=== PATIENT | female | born 2000 | race Caucasian/White ===

== ENCOUNTER → 2020-12-09 16:42 | Outpatient (CLI) | payer OTHER, SELFPAY ==
[2020-12-13 16:54] LABS: HPV Reflexed? NOT INDICATED
== END ==
PROVIDERS: PCP Nurse Practitioner Family; Visit Provider Obstetrics & Gynecology
DX: Z12.4 Encounter for screening for malignant neoplasm of cervix (principal)
CPT/HCPCS: 88175; G0145

== ENCOUNTER → 2022-02-17 | Outpatient (CLI) | payer OTHER, SELFPAY ==
[2022-02-25 12:26] LABS: HPV APTIMA, High Risk Positive (Negative)
[2022-05-11 18:52] LABS: HPV Reflexed? YES, CHARGE PATIENT
== END | disposition home or self-care (01) ==
LOC: LABSPEC 14:58
PROVIDERS: PCP Nurse Practitioner Family; Referring Provider Obstetrics & Gynecology; Visit Provider Obstetrics & Gynecology
DX: Z12.4 Encounter for screening for malignant neoplasm of cervix (principal)
CPT/HCPCS: 87624; 88175; G0145

== ENCOUNTER → 2022-02-20 | Outpatient (CLI) | payer OTHER, SELFPAY ==
--- NOTE | 2022-02-20 10:51 | US_ITS ---
STUDY: ULTRASOUND BREAST - RIGHT REASON FOR EXAM: Female, 21 years old. Right breast mass. TECHNIQUE: Axial and longitudinal images of the RIGHT breast were performed with a high resolution ultrasound transducer. # OF IMAGES: 16 COMPARISON: None. FINDINGS: RIGHT Breast: The inner lower quadrant of the right breast was examined by ultrasound. No sonographic abnormality is seen. Clinical correlation suggested. US/Breast Limited Unilateral IMPRESSION: No sonographic abnormality is seen. Clinical correlation recommended. ASSESSMENT CATEGORY: BIRADS Category 1: Negative. A letter regarding these results will be sent to the patient by the facility within 30 days. Electronically Signed: Tam Montes MD at 8:41 EDT ,
== END | disposition home or self-care (01) ==
LOC: OPUS 10:51
PROVIDERS: PCP Nurse Practitioner Family; Visit Provider Obstetrics & Gynecology
DX: N63.10 Unspecified lump in the right breast, unspecified quadrant (principal)
CPT/HCPCS: 76642

== ENCOUNTER → 2023-02-18 | Outpatient (CLI) | payer OTHER, SELFPAY ==
[2023-02-22 07:07] LABS: Chlamydia By Nucleic Acid AMP Negative (Negative); Gonococcus By Nucleic Acid AMP Negative (Negative)
[2023-02-24 22:09] LABS: HPV Reflexed? NOT INDICATED
== END | disposition home or self-care (01) ==
LOC: LABSPEC 15:34
PROVIDERS: PCP Nurse Practitioner Family; Referring Provider Obstetrics & Gynecology; Visit Provider Obstetrics & Gynecology
DX: Z20.2 Contact with and (suspected) exposure to infections with a predominantly sexual mode of transmission (principal); Z12.4 Encounter for screening for malignant neoplasm of cervix
CPT/HCPCS: 87491; 87591; 88175; G0145

== ENCOUNTER → 2024-02-11 | Outpatient (CLI) | payer OTHER, SELFPAY ==
[2024-02-11 12:56] LABS: Absolute Lymphocyte Count 2.61 X10^3/uL (0.83-4.51); Absolute Neutrophil Count 6.2 X10^3/uL (2.0-7.7); Basophil# 0.06 X10^3/uL; Basophil% 0.6 % (0-1); Eosinophil# 0.12 X10^3/uL; Eosinophils% 1.2 % (0-5); Hematocrit 36.8 % (37-47); Hemoglobin 12.7 g/dL (12.0-15.0); Lymphocyte # 2.61 X10^3/ul (0.83-4.51); Lymphocyte % 26.5 % (19-41); Mean Corp Hgb Conc 34.5 g/dL (32-36); Mean Corpuscular Hgb 32.5 pg (27.0-32.0); Mean Corpuscular Volume 94.1 fL (81-99); Mean Platelet Vol. 9.5 fl (6.2-12.0); Monocyte# 0.82 X10^3/uL; Monocyte% 8.3 % (0-10); NRBC Flagged by Analyzer 0 % (0-5); Neutrophil # 6.22 X10^3/uL (2.7-7.7); Neutrophil % 63.1 % (47-70); Platelet Count 306 K/mm3 (150-450); RBC Distribution Width CV 11.8 % (11.6-14.6); RBC Distribution Width SD 40.5 fl (35.1-43.9); Red Blood Count 3.91 M/mm3 (4.2-5.4); White Blood Count 9.9 K/mm3 (4.4-11.0)
[2024-02-11 14:11] LABS: HIV - WCH Non-Reactive (Nonreactive); Hepatitis B Surface Antigen Non-Reactive (Nonreactive); Hepatitis C Antibody Non-Reactive (Nonreactive); Rubella IgG Non-Reactive (Nonreactive); Syphilis Antibodies Non-reactive
[2024-02-14 20:07] LABS: Chlamydia By Nucleic Acid AMP Negative (Negative); Gonococcus By Nucleic Acid AMP Negative (Negative)
== END | disposition home or self-care (01) ==
PROVIDERS: PCP Nurse Practitioner Family; Referring Provider Advanced Practice Midwife; Visit Provider Advanced Practice Midwife
DX: Z34.00 Encounter for supervision of normal first pregnancy, unspecified trimester (principal)
CPT/HCPCS: 36415; 85025; 86703; 86762; 86780; 86803; 86850; 86900; 86901; 87086; 87340; 87491; 87591

== ENCOUNTER → 2024-04-10 | Outpatient (CLI) | payer OTHER, SELFPAY | END | disposition home or self-care (01) | PROVIDERS: PCP Nurse Practitioner Family; Referring Provider Obstetrics & Gynecology; Visit Provider Obstetrics & Gynecology | DX: Z36.9 Encounter for antenatal screening, unspecified (principal) | CPT/HCPCS: 36415 ==

== ENCOUNTER → 2024-04-14 | Outpatient (CLI) | payer OTHER, SELFPAY ==
--- NOTE | 2024-04-14 12:21 | US_ITS ---
HISTORY: anatomy/cervical length. LMP 11/26/2023. TECHNIQUE: Transabdominal pelvic ultrasound was performed. 124 images. COMPARISON: None. FINDINGS: INTRAUTERINE GESTATION(s): Single. PRESENTATION: Transverse left, variable position. HEART MOTION: 155 bpm. PLACENTA: Left lateral, grade 0. 2.7 cm from the internal os on transvaginal imaging, 1.6 cm from the internal os on transabdominal imaging. Small venous lakes noted. Bilobed appearance. CERVIX: 4.9 cm, long and closed. AMNIOTIC FLUID: Maximum vertical pocket 4.3 cm. biometry- BIPARIETAL DIAMETER: 4.7 cm, corresponding to 20 weeks 2 days. HEAD CIRCUMFERENCE: 17.7 cm, corresponding to 20 weeks 1 day. ABDOMINAL CIRCUMFERENCE: 15.3 cm, corresponding to 20 weeks 4 days. FEMUR LENGTH: 3.1 cm, corresponding to 19 weeks 4 days. ESTIMATED GESTATIONAL AGE: 20 weeks 1 day. ESTIMATED DUE DATE (KAYLYNN): 08/31/2024. ESTIMATED WEIGHT: 335 g corresponding to 54th percentile. ANATOMY: Facial profile, nose/lips, anterior and posterior cranial fossa, spine, bilateral upper and lower extremities, four-chamber heart with small echogenic foci in the left and right ventricles, three-vessel cord insertion, stomach, kidneys, and bladder visualized. IMPRESSION: Single living intrauterine in variable presentation with an estimated gestational age of 20 weeks 1 day. Mildly low-lying placenta. Unremarkable cervix. Small echogenic foci in the cardiac ventricles, uncertain clinical significance. Recommend follow-up. Electronically Signed: Zuly Lima MD at 14:55 EDT , HISTORY: anatomy/cervical length. LMP 11/26/2023. TECHNIQUE: Transabdominal pelvic ultrasound was performed. 124 images. COMPARISON: None. FINDINGS: INTRAUTERINE GESTATION(s): Single. PRESENTATION: Transverse left, variable position. HEART MOTION: 155 bpm. PLACENTA: Left lateral, grade 0. 2.7 cm from the internal os on transvaginal imaging, 1.6 cm from the internal os on transabdominal imaging. Small venous lakes noted. Bilobed appearance. CERVIX: 4.9 cm, long and closed. AMNIOTIC FLUID: Maximum vertical pocket 4.3 cm. biometry- BIPARIETAL DIAMETER: 4.7 cm, corresponding to 20 weeks 2 days. HEAD CIRCUMFERENCE: 17.7 cm, corresponding to 20 weeks 1 day. ABDOMINAL CIRCUMFERENCE: 15.3 cm, corresponding to 20 weeks 4 days. FEMUR LENGTH: 3.1 cm, corresponding to 19 weeks 4 days. ESTIMATED GESTATIONAL AGE: 20 weeks 1 day. ESTIMATED DUE DATE (KAYLYNN): 08/31/2024. ESTIMATED WEIGHT: 335 g corresponding to 54th percentile. ANATOMY: Facial profile, nose/lips, anterior and posterior cranial fossa, spine, bilateral upper and lower extremities, four-chamber heart with small echogenic foci in the left and right ventricles, three-vessel cord insertion, stomach, kidneys, and bladder visualized. US/OB Anatomy w/ Transvaginal IMPRESSION: Single living intrauterine in variable presentation with an estimated gestational age of 20 weeks 1 day. Mildly low-lying placenta. Unremarkable cervix. Small echogenic foci in the cardiac ventricles, uncertain clinical significance. Recommend follow-up. Electronically Signed: Zuly Lima MD at 14:56 EDT ,
== END | disposition home or self-care (01) ==
LOC: US 12:21
PROVIDERS: PCP Nurse Practitioner Family; Referring Provider Obstetrics & Gynecology; Visit Provider Obstetrics & Gynecology
DX: Z34.00 Encounter for supervision of normal first pregnancy, unspecified trimester (principal)
CPT/HCPCS: 76805; 76817

== ENCOUNTER → 2024-06-06 | Outpatient (CLI) | payer OTHER, SELFPAY ==
[2024-06-06 12:22] LABS: Absolute Lymphocyte Count 1.32 X10^3/uL (0.83-4.51); Absolute Neutrophil Count 7.2 X10^3/uL (2.0-7.7); Basophil# 0.03 X10^3/uL; Basophil% 0.3 % (0-1); Eosinophil# 0.04 X10^3/uL; Eosinophils% 0.4 % (0-5); Hemoglobin 12.1 g/dL (12.0-15.0); Lymphocyte # 1.32 X10^3/ul (0.83-4.51); Lymphocyte % 14.3 % (19-41); Mean Corp Hgb Conc 33.6 g/dL (32-36); Mean Corpuscular Hgb 32.4 pg (27.0-32.0); Mean Corpuscular Volume 96.5 fL (81-99); Mean Platelet Vol. 10.1 fl (6.2-12.0); Monocyte# 0.54 X10^3/uL; Monocyte% 5.9 % (0-10); NRBC Flagged by Analyzer 0 % (0-5); Neutrophil # 7.24 X10^3/uL (2.7-7.7); Neutrophil % 78.6 % (47-70); Platelet Count 320 K/mm3 (150-450); RBC Distribution Width CV 11.9 % (11.6-14.6); RBC Distribution Width SD 41.7 fl (35.1-43.9); Red Blood Count 3.73 M/mm3 (4.2-5.4); White Blood Count 9.2 K/mm3 (4.4-11.0)
[2024-06-06 13:15] LABS: Glucose Challenge Gest 1H 50g 189 mg/dL (70-140)
[2024-06-06 13:19] LABS: HIV - WCH Non-Reactive (Nonreactive); Syphilis Antibodies Non-reactive
== END | disposition home or self-care (01) ==
LOC: BWCLAB 11:20
PROVIDERS: PCP Nurse Practitioner Family; Referring Provider Nurse Practitioner Women's Health; Visit Provider Nurse Practitioner Women's Health
DX: Z13.1 Encounter for screening for diabetes mellitus (principal)
CPT/HCPCS: 36415; 82950; 85025; 86703; 86780

== ENCOUNTER → 2024-06-15 | Outpatient (CLI) | payer OTHER, SELFPAY ==
--- NOTE | 2024-06-15 15:22 | US_ITS ---
EXAM: US , LIMITED CLINICAL INDICATION: growth TECHNIQUE: Real-time limited ultrasound of the maternal uterus with image documentation. COMPARISON: Obstetrical ultrasound 04/14/2024. FINDINGS: FETUS: Single fetus. GESTATIONAL AGE: Clinical gestational age is 28 weeks 6 days which corresponds to the estimated gestational age by measurement. KAYLYNN: KAYLYNN is September 01, 2024. EFW: Estimated weight is 1357 g which is at the 50th percentile. BPD: BPD 7.2 cm. HC: Head circumference is 26.9 cm. AC: Abdominal circumference is 25.6 cm. FL: Femur length is 5.4 cm. POSITION: Cephalic presentation. HEART RATE: cardiac rate is 138 bpm. AMNIOTIC FLUID: Amniotic fluid index is 14.2 cm. UTERUS: Uterus located along the left lateral uterine wall. CERVIX: Cervix is not imaged. Normal interval growth. US/OB Limited With Biometrics IMPRESSION: Normal interval growth. Electronically Signed: Rom Diana MD at 14:11 EST ,
== END | disposition home or self-care (01) ==
LOC: US 15:21
PROVIDERS: PCP Nurse Practitioner Family; Referring Provider Obstetrics & Gynecology; Visit Provider Obstetrics & Gynecology
DX: O43.119 Circumvallate placenta, unspecified trimester (principal); Z3A.00 Weeks of gestation of pregnancy not specified
CPT/HCPCS: 76816

== ENCOUNTER 2024-06-20 08:00 | Outpatient (RCR) | payer OTHER, SELFPAY | END 2024-06-27 23:59 | LOC: NS 08:00 | PROVIDERS: PCP Nurse Practitioner Family; Referring Provider Nurse Practitioner Women's Health; Visit Provider Nurse Practitioner Women's Health | DX: Z71.3 Dietary counseling and surveillance (principal); O24.419 Gestational diabetes mellitus in pregnancy, unspecified control | CPT/HCPCS: 97802; 97803 ==

== ENCOUNTER → 2024-07-11 | Outpatient (CLI) | payer OTHER, SELFPAY ==
--- NOTE | 2024-07-11 16:38 | US_ITS ---
STUDY: SECOND AND THIRD TRIMESTER OBSTETRICAL ULTRASOUND - LIMITED REASON FOR EXAM: Female, 24 years old growth -- 32 weeks, check placental location LMP: November 26, 2023. PRIOR ULTRASOUND: Comparison is made with prior sonogram dated June 15, 2024. TECHNIQUE: Transabdominal TECHNICAL QUALITY: Adequate. FINDINGS: There is a single intrauterine fetus. The fetus is in a cephalic presentation. There is demonstrated cardiac activity with a heart rate of 136 bpm. There is a normal amniotic fluid volume. The largest amniotic fluid pocket measures 4.8 cm. The amniotic fluid index (JAMES) is 14.7 cm. The placenta is left lateral in location and is not low lying. There are Grade 1 placental changes. BIOMETRY: BPD: 8 cm: 32 weeks, 2 days: 32% HC: 30 cm: 32 weeks, 5 days: 17% AC: 30.37: 34 weeks, 2 days: 91% FL: 6.2 cm: 31 weeks, 6 days: 21% Age by LMP: 32 weeks, 4 days. KAYLYNN by LMP: September 01, 2024. age by current US: 32 weeks, 3 days. KAYLYNN by current US: September 02, 2024. Estimated weight: 2178 grams, +/- 327 grams, 65 percentile. US/OB Limited With Biometrics IMPRESSION: Single live intrauterine gestation with a mean gestational age of 32 weeks and 3 days. Electronically Signed: Tam Montes MD at 15:39 EST ,
== END | disposition home or self-care (01) ==
LOC: US 16:37
PROVIDERS: PCP Nurse Practitioner Family; Referring Provider Nurse Practitioner Women's Health; Visit Provider Nurse Practitioner Women's Health
DX: O24.419 Gestational diabetes mellitus in pregnancy, unspecified control (principal); Z3A.00 Weeks of gestation of pregnancy not specified
CPT/HCPCS: 76816

== ENCOUNTER → 2024-08-08 | Outpatient (CLI) | payer OTHER, SELFPAY | END | disposition home or self-care (01) | LOC: LABSPEC 14:33 | PROVIDERS: PCP Nurse Practitioner Family; Referring Provider Obstetrics & Gynecology; Visit Provider Obstetrics & Gynecology | DX: Z34.03 Encounter for supervision of normal first pregnancy, third trimester (principal) | CPT/HCPCS: 87081 ==

== ENCOUNTER → 2024-08-14 | Outpatient (CLI) | payer OTHER, SELFPAY ==
--- NOTE | 2024-08-14 17:04 | US_ITS ---
PROCEDURE: OB LIMITED WITH BIOMETRICS REASON FOR EXAM: growth. COMPARISON: Comparison is made with prior sonogram dated July 11, 2024. FINDINGS Number: 1 Position: Vertex Placental Position: Left lateral. Not low-lying. Placental Abnormalities: None. DIMENSIONS: Biparietal Diameter: 8.9 cm: 36 weeks and 0 days: 28 percentile/ Head Circumference: 32.9 cm: 37 weeks and 3 days: 27th percentile/ Abdominal Circumference: 35.3 cm: 39 weeks and 2 days: 96 percentile/ Femur Length: 7 cm: 36 weeks and 0 days: 16 percentile/ ESTIMATED WEIGHT: 3357 g plus/-504 g ESTIMATED WEIGHT PERCENTILE (24+ weeks): 71.9 ESTIMATED GESTATIONAL AGE: Baseline: 37 weeks and 3 days By Ultrasound: 37 weeks and 1 day ESTIMATED DATE OF DELIVERY: Baseline: September 01, 2024 By Ultrasound: BIOPHYSICAL ASSESSMENT: Amniotic Fluid Volume: September 03, 2024 Amniotic Fluid Index: 9.5 (8-24 cm normal range) Cardiac Motion: 153 beats per minute (average) Trunk and Limb Motion: Present. MATERNAL ANATOMY: Adnexa: Neither maternal ovary is successfully identified. US/OB Limited With Biometrics IMPRESSION: Single live intrauterine gestation with mean gestational age of 37 weeks and 1 day. Reading Location: [facility]
--- NOTE | 2024-08-14 17:14 | US_ITS ---
PROCEDURE: TRANSVAGINAL W/PREG US REASON FOR EXAM: Placenta location. COMPARISON: Comparison is made with prior study dated July 11, 2024. FINDINGS Number: 1 Position: Vertex Placental Position: Anterior and not low-lying. Placental Abnormalities: Bilobed placenta. ESTIMATED GESTATIONAL AGE: Baseline: 37 weeks and 3 days ESTIMATED DATE OF DELIVERY: Baseline: September 01, 2024 BIOPHYSICAL ASSESSMENT: Cardiac Motion: 150 beats per minute. (Average) Trunk and Limb Motion: Present. MATERNAL ANATOMY: Adnexa: Neither maternal ovary is successfully identified. Cervical Length (if measured): 4.1 cm US/Transvaginal w/Preg US IMPRESSION: Placenta is anterior and not low-lying. Reading Location: [facility]
== END | disposition home or self-care (01) ==
LOC: US 17:03
PROVIDERS: PCP Nurse Practitioner Family; Referring Provider Obstetrics & Gynecology; Visit Provider Obstetrics & Gynecology
DX: O24.410 Gestational diabetes mellitus in pregnancy, diet controlled (principal); Z3A.00 Weeks of gestation of pregnancy not specified
CPT/HCPCS: 76816; 76817

== ENCOUNTER 2024-08-28 19:17 | Inpatient (IN) | payer OTHER, SELFPAY ==
[2024-08-28 19:14] VITALS: BMI 24.3
--- NOTE | 2024-08-28 20:07 | HP.PCM.OB_ITS ---
HPI - General General Date of Admission: 08/28/24 Date of Service: 08/28/24 HPI Narrative CLYDE ROSS, is a 24 F 39.3 weeks who presents to unit for induction of labor for GDM Maternal Data Information KAYLYNN Calculator Estimated Delivery Date Method Current WG Current Estimate 09/01/24 LMP (Certain) 39w 3d Other Estimates 08/31/24 Ultrasound #1 39w 4d Final KAYLYNN: 09/01/24 Final KAYLYNN Source: US >20 weeks Gestational age: 39.3 PFSH PFSH Medical History Breast mass, right Cold sore Home Medications ?Medication ?Instructions ?Recorded ?Last Taken ?Type multivit-min no.71-iron fum 28 cap PO 02/04/24 Unknown History mg-folate no.1 1 mg-dha 300 mg capsule (PNV-[place]) valacyclovir 1 gram tablet 1,000 mg PO BID PRN 4 Unknown History (Valtrex) blood sugar diagnostic (Blood #120 ea 06/06/24 Unknown Rx Glucose Test strips) blood-glucose meter #1 ea 06/06/24 Unknown Rx lancets 30 gauge (Droplet Lancets) #200 ea 06/06/24 Un known Rx Allergy/AdvReac Type Severity Reaction Status Date / Time No Known Allergies Allergy Verified 08/21/24 08:38 Family History Father Hypertension Grandmother Breast cancer Surgical History [place] teeth extracted S/P right knee surgery Social History adopted: No household members: significant other current occupational status: employed current occupation: RN [employer] current occupational exposures/hazards: No pets and animals: No history of recent travel: No sexually active: Yes Smoking Status: Never smoker alcohol intake: current alcohol intake frequency: holidays/special occasions only details: occasionally- Not while substance use type: does not use well-balanced diet: daily or most days caffeine: No eating out: rarely or never during the past year weight has: remained stable what type of physical activity do you participate in: none adin/methodist: Quaker seatbelt use: always do you feel safe at home: Yes additional social history: BF Waqas- Construction- Unit Controller History 1 Elective abortions Hx Para 0 Spontaneous abortions Hx # Term Pregnancies Ectopic pregnancies Hx # Pregnancies Multiple births # of living children Visit Details Expected Delivery Route/Plan Labor Preferences- CB/BF classes: no-WP nurse labor support person: Waqas labor intervention preferences: [] pain management options preferred: epidural cut cord/dad catch: yes : yes PP control planned: discussed discussed possible routes of delivery and associated risks: [] special requests: [] Plans Covid status: [] Flu vaccine: given Tdap vaccine: [] Rhogam: [NA LARC form signed: yes movement and labor precautions reviewed. Problem list reviewed and updated with the most current plan of care details and appropriate orders placed. Relevant counseling for the gestational age provided. Continue routine care and follow up unless otherwise noted in visit n otes/problem list details OB Flowsheet Initial Weight: 126 lb Date -?-?-?-?-?-?-?-?-?-?-?-?- EGA Weight BP Urine Prot -?-?-?-?-?-?-?-?-?-?-?-?- Glucose FHR FuHt Pres Dilation -?-?-?-?-?-?-?-?-?-?-?-?- Effaced St Visit Note 02/11/24 -?-?-?-?-?-?-?-?-?-?-?-?- 11w 0d 126 lb 6 oz (+6 oz) 127/87 -?-?-?-?-?-?-?-?-?-?-?-?- 178 -?-?-?-?-?-?-?-?-?-?-?-?- KW-CRL 48mm cons with dates. Accepts NIPT. doing well 03/14/24 -?-?-?-?-?-?-?-?-?-?-?-?- 15w 4d 127 lb (+16 oz) 127/79 Negative -?-?-?-?-?-?-?-?-?-?-?-?- Negative 150 -?-?-?-?-?-?-?-?-?-?-?-?- JV- no cramping or spotting. no complaints. low risk NIPT, it's a boy! 04/10/24 -?-?-?-?-?-?-?-?-?-?-?-?- 19w 3d 129 lb (+3 lb) 122/74 Negative -?-?-?-?--?-?-?-?-?-?-?-?- Negative 155 -?-?-?-?-?-?-?-?-?-?-?-?- SM- no vb crampi ng 05/11/24 -?-?-?-?-?-?-?-?-?-?-?-?- 23w 6d 132 lb 6 oz (+6 lb 6 oz) 112/68 Negative -?-?-?-?-?-?-?-?-?-?-?-?- Negative 156 -?-?-?-?-?-?-?-?-?-?-?-?- MH-No VB, LOF. G ood Fm. Reviewed US. Will proceed with 28 wk growth US. 06/06/24 -?-?-?-?-?-?-?-?-?-?-?-?- 27w 4d 136 lb 4 oz (+10 lb 4 oz) 119/77 Negative -?-?-?-?-?-?-?-?-?-?-?-?- Negative 145 28 -?-?-?-?-?-?-?-?-?-?-?-?- Sm- no vb lof go od fm no regular ctx co leg crmaps 06/20/24 -?-?-?-?-?-?-?-?-?-?-?-?- 29w 4d 136 lb 8 oz (+10 lb 8 oz) 109/71 Negative -?-?-?-?-?-?-?-?-?-?-?-?- Negative 145 30 -?-?-?-?-?-?-?-?-?-?-?-?- SM- no vb lof go od fm no regular ctx SM- no vb lof good fm no reg ular ctx BS reviewed 07/06/24 -?-?-?-?-?-?-?-?-?-?-?-?- 31w 6d 140 lb 4 oz (+14 lb 4 oz) 114/68 Negative -?-?-?-?-?-?-?-?-?-?-?-?- Negative 145 32 -?-?-?-?-?-?-?-?-?-?-?-?- MH- No VB, LOF. Good FM. Glucose reading nl. 07/20/24 -?-?-?-?-?-?-?-?-?-?-?-?- 33w 6d 140 lb 4 oz (+14 lb 4 oz) 127/74 Negative -?-?-?-?-?-?-?-?-?-?-?-?- Negative 154 35 -?-?-?-?-?--?-?-?-?-?-?-?- JV- glucose log normal. no longer low lying placenta. no complaints today. 08/02/24 -?-?-?-?-?-?-?-?-?-?-?-?- 35w 5d 143 lb 2 oz (+17 lb 2 oz) 114/78 Negative -?-?-?-?-?-?-?-?-?-?-?-?- Negative 140 36 -?-?-?-?-?-?-?-?-?-?-?-?- SM- no vb lof go od fm no regular ctx 08/08/24 -?-?-?-?-?-?-?-?-?-?-?-?- 36w 4d 143 lb 4 oz (+17 lb 4 oz) 125/77 Negative -?-?-?-?-?-?-?-?-?-?-?-?- Negative 140 36 Cephalic 1 -?-?-?-?-?-?-?-?-?-?-?-?- 50 -3 Sm- no vb lof good fm no regular ctx discussed 08/18/24 -?-?-?-?-?-?-?-?-?-?-?-?- 38w 0d 144 lb (+18 lb) 118/79 Negative -?-?-?-?-?-?-?-?-?-?-?-?- Negative 135 38 Cephalic 1 -?-?-?-?-?-?-?-?-?-?-?-?- 60 -2 KW- no vb/ lof/ctx. good fm. doing well. discussed IOL 08/21/24 -?-?-?-?-?-?-?-?-?-?-?-?- 38w 3d 147 lb 2 oz (+21 lb 2 oz) 123/82 Negative -?-?-?-?-?-?-?-?-?-?-?-?- Negative 145 39 Cephalic 1 -?-?-?-?-?-?-?-?-?-?-?-?- 60 -2 JV- no lof , vaginal bleeding, or dec fm. no complaints. nst reactive. IOL 08/28/24 at 7 pm NST FHR Rate Baby A Baseline: 135 Variability:: Moderate Accelerations:: 15 x 15 Decelerations:: None NST Reactive:: Yes FHR Category:: Category I Uterine Activity:: irregular ROS Constitutional Constitutional: Denies change in weight, fatigue, fever(s), headache(s), poor appetite or weakness Eyes Eyes: Denies blurry vision, change in vision, floaters, seeing flashes or spots in vision ENT HEENT: Denies dizziness, headache(s), loss taste/smell or sore throat Cardiovascular Cardiovascular: Denies chest pain, dizziness, dyspnea, irregular heart rhythm, lightheadedness, palpitations or rapid heart rate Respiratory/Chest Respiratory/Chest: Denies change in mental status, chest tightness, cough, dyspnea or breast pain Gastrointestinal Gastrointestinal: Denies anorexia, chewing difficulty, constipation, diarrhea or weight changes Genitourinary Genitourinary: Denies difficulty urinating, dysuria, flank pain, genital pain, urinary frequency or urinary urgency Musculoskeletal Musculoskeletal: Denies back pain, difficulty walking, extremity pain, joint pain, muscle cramps or muscle weakness Integumentary Integumentary: Denies lesions or unusual bruising Neurologic Neurologic: Denies abnormal movements, abnormal speech, dizziness, numbness, seizure-like activity, syncope or weakness Psychiatric Psychiatric: Denies behavioral changes, change in appetite, confusion, depression, homicidal ideation, suicidal ideation or suicidal thoughts Endocrine Endocrinology: Denies excessive sweating, polydipsia or polyuria Hematologic/Lymphatic Hematologic/Lymphatic: Denies anemia Allergic/Immunologic Allergic/Immunologic: Denies itchy eyes, lip swelling, throat swelling, tongue swelling or wheezing Vital Signs Vital Signs Vital Signs: Weight Weight: 146 lb Body Mass Index (BMI) 24.3 Physical Exam Const alert, oriented x3 and no apparent distress General Appearance: cooperative Orientation / Consciousness: awake HEENT normocephalic Neck full ROM Lymph Lymphatic: no lymphadenopathy noted Chest inspection of chest normal Resp normal respiratory effort and normal air movement Effort and Inspection: able to speak in complete sentences and symmetric chest movement GI soft to palpation and non-tender Inspection: gravid Palpation: soft; Negative for tender external exam normal Manual OB Exam: dilated 3, effaced 70 and station -2 Back/Spine normal to inspection Extremity normal to inspection and full ROM Skin no rashes or lesions noted Psych mental status grossly normal Appearance: grossly normal Speech: normal speech Labs Labs Labs: Blood Type A POSITIVE Antibody Screen NEGATIVE Hct 36.0 % (37-47) L Hgb 12.1 g/dL (12.0-15.0) Obstetrics Ultrasound Syphilis Total Ab Non-reactive Rubella IgG Antibody Non-Reactive (Nonreactive) Hep Bs Antigen Non-Reactive (Nonreactive) Hepatitis C Antibody Non-Reactive (Nonreactive) Chlamydia DNA (DESTINY) Negative (Negative) N.gonorrhoeae DNA (DESTINY) Negative (Negative) HIV 1&2 Antibody Non-Reactive (Nonreactive) Glucose 1 Hr 50 gm 189 mg/dL (70-140) H Miscellaneous Test Assessment & Plan (1) Encounter for induction of labor: PLAN: Patient presents IOL, plan management for with pitocin/AROM. Pain management: plans epidural. GBS negative. Management of any complications: see problem list I have reviewed the [facility] and made any clinically relevant updates. Dr Matos aware of assessment, plan and admission. agrees with above (2) Gestational diabetes: QUALIFIERS: Gestational diabetes mellitus control: diet-controlled Trimester: third trimester Qualified Code(s): O24.410 - Gestational diabetes mellitus in , diet controlled COMMENT: diet controlled. growth US at 36. deliver by 39-40 (3) Bilobed placenta: COMMENT: 2.5cm from os. Venous dunbar. Growth 28 wk (4) Rubella non-immune status, antepartum: COMMENT: offer MMR PP (5) Supervision of normal first : QUALIFIERS: Trimester: third trimester Qualified Code(s): Z34.03 - Encounter for supervision of normal first , third trimester COMMENT: PRR, , KAYLYNN 09/01/24, boy BF Waqas. desires jv for delivery if possible- iol august 28 pm (6) : QUALIFIERS: Weeks of gestation: 38 weeks Qualified Code(s): Z3A.38 - 38 weeks gestation of COMMENT: GBS neg,NIPT low risk. carrier declined. afp negative, nl anatomy (7) ASCUS with positive high risk HPV: COMMENT: repeat pap in 2022-02/18/23 negative pap (8) Low grade squamous intraepith lesion on cytologic smear cervix (lgsil): COMMENT: Repeat pap 2021 Charges/Coding Multi Select Codes Urinary/Genital Urinary/Genital CPT Codes: No Charge
[2024-08-28] MEDS: Lactated Ringers 1,000 ML 50 ML IV (20:40)
[2024-08-28] MEDS: Oxytocin 15 Units/NS 250ml 15 UNITS/250 ML IV.SOLN 2 UNITS IV (21:02)
[2024-08-28 21:13] LABS: Absolute Lymphocyte Count 2.08 X10^3/uL (0.83-4.51); Absolute Neutrophil Count 5.6 X10^3/uL (2.0-7.7); Basophil# 0.02 X10^3/uL; Basophil% 0.2 % (0-1); Eosinophil# 0.03 X10^3/uL; Eosinophils% 0.3 % (0-5); Hematocrit 34.7 % (37-47); Hemoglobin 11.3 g/dL (12.0-15.0); Lymphocyte # 2.08 X10^3/ul (0.83-4.51); Lymphocyte % 23.8 % (19-41); Mean Corp Hgb Conc 32.6 g/dL (32-36); Mean Corpuscular Hgb 28.6 pg (27.0-32.0); Mean Corpuscular Volume 87.8 fL (81-99); Mean Platelet Vol. 11.8 fl (6.2-12.0); Monocyte# 0.97 X10^3/uL; Monocyte% 11.1 % (0-10); NRBC Flagged by Analyzer 0 % (0-5); Neutrophil # 5.58 X10^3/uL (2.7-7.7); Platelet Count 250 K/mm3 (150-450); RBC Distribution Width CV 14.5 % (11.6-14.6); RBC Distribution Width SD 45.5 fl (35.1-43.9); Red Blood Count 3.95 M/mm3 (4.2-5.4); White Blood Count 8.7 K/mm3 (4.4-11.0)
[2024-08-28 21:50] LABS: Bedside Glucose 82 mg/dL (74-106)
[2024-08-28 22:16] VITALS: BP 140/93; PULSE 62; O2SAT 98
[2024-08-28 22:17] VITALS: RESP 14; TEMP 36.9
[2024-08-28 22:21] LABS: Syphilis Antibodies Nonreactive (Nonreactive)
[2024-08-28 23:29] VITALS: BP 128/92; PULSE 58; RESP 14; TEMP 36.5
[2024-08-28 23:30] VITALS: PULSE 61; O2SAT 99
[2024-08-28 23:54] LABS: Bedside Glucose 81 mg/dL (74-106)
[2024-08-29] VITALS (46 sets, daily range): BP systolic 92–144; BP diastolic 54–90; PULSE 70–111; RESP 14–18; TEMP 36.3–37.8; O2SAT 97–100
[2024-08-29] MEDS: Ondansetron 4 MG/2 ML Vial IV ×2 (02:08→08:29)
[2024-08-29] MEDS: Lactated Ringers 1,000 ML 999 ML IV (02:40)
[2024-08-29 03:04] LABS: Bedside Glucose 80 mg/dL (74-106)
[2024-08-29] MEDS: fentaNYL-bupivacaine (epidural) 100 ML BAG EPIDURAL (03:30)
[2024-08-29 06:38] LABS: Bedside Glucose 73 mg/dL (74-106)
[2024-08-29] MEDS: Amnioinfusion- 0.9% NS 1,000 ML IV.SOLN. 1000 ML INTRA-UTER (07:01)
[2024-08-29] MEDS: DiphenhydrAMINE 50 MG/ML Syringe IV (07:01)
[2024-08-29] MEDS: Methylergonovine 0.2 MG/ML Ampul IM (08:03)
[2024-08-29] MEDS: Oxytocin 15 Units/NS 250ml 15 UNITS/250 ML IV.SOLN 83 UNITS IV (08:16)
--- NOTE | 2024-08-29 08:17 | EX.PCM.OBVAG ---
Assessment & Plan (1) Gestational diabetes: QUALIFIERS: Gestational diabetes mellitus control: diet-controlled Trimester: third trimester Qualified Code(s): O24.410 - Gestational diabetes mellitus in , diet controlled COMMENT: diet controlled. growth US at 36. deliver by 39-40 (2) Encounter for induction of labor: (3) Bilobed placenta: COMMENT: 2.5cm from os. Venous dunbar. Growth 28 wk (4) Rubella non-immune status, antepartum: COMMENT: offer MMR PP (5) Supervision of normal first : QUALIFIERS: Trimester: third trimester Qualified Code(s): Z34.03 - Encounter for supervision of normal first , third trimester COMMENT: PRR, , KAYLYNN 09/01/24, boy BF Waqas. desires jv for delivery if possible- iol august 28 pm (6) : QUALIFIERS: Weeks of gestation: 38 weeks Qualified Code(s): Z3A.38 - 38 weeks gestation of COMMENT: GBS neg,NIPT low risk. carrier declined. afp negative, nl anatomy Maternal Data Information KAYLYNN Calculator Estimated Delivery Date Method Current WG Current Estimate 09/01/24 LMP (Certain) 39w 4d Other Estimates 08/31/24 Ultrasound #1 39w 5d Final KAYLYNN: 09/01/24 Final KAYLYNN Source: LMP Vaginal Delivery Maternal Presentation Maternal Presentation: Medically Indicated Induction Type of Induction: Pitocin and Amniotomy Medical Reason for Induction: Other (Gestational diabetes ) Vaginal Delivery Information Procedure Performed: Spontaneous Vaginal Delivery Surgeon/Practitioner: Lexus Gutierrez Date of Procedure: 08/29/24 Pre-Procedure Diagnosis: 24 y/o @ 39 weeks, gestational diabetes Post-Procedure Diagnosis: 24 y/o @ 39 weeks, gestational diabetes Type of anesthesia: Epidural Estimated Blood Loss: 300cc Time of Delivery: 07:53 Findings Description of procedure: Patient began pushing and delivered the head in the NEIL presentation. The head was delivered atraumatically and a loose nuchal cord ?1 was identified and easily reduced over the 's head. The anterior and posterior shoulders delivered without complication followed by the rest of the infant and the was placed on the maternal abdomen. Delayed cord clamping was employed for approximately 60 seconds. Cord was clamped and cut and gentle traction was applied to the cord and the placenta delivered spontaneously immediately following it was noted to be intact with three-vessel cord. The perineum and vagina were inspected and noted to have a 1st degree perineal laceration repaired with a 2-0 vicryl and a left labial laceration repaired with a 3-0 vicryl. EBL was 300. Patient and tolerated delivery well. 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
--- NOTE | 2024-08-29 08:21 | PCM.DC ---
Discharge Instructions Diet Discharge Diet: No restrictions DC O2, CPAP, BIPAP needs Home O2 Discharge instructions: No Dressing / Incision Discharge Activity: Return to Normal Activity, May Not Drive (while taking narcotic pain medications.) and May Shower May resume sexual activity in: 4-6 weeks Dressing / Incision Call your doctor if your incision/area has: Continuous Slow Oozing, Sudden Increased Bleeding, Increased Pain/ Swelling, Increased Redness and Foul Smelling Discharge Follow Up Care Please Follow Up With: Lexus Gutierrez, When: Call [phone] to make an appointment with your doctor in 6 weeks. If you had elevated blood pressure or 4th degree laceration, you will need to be seen in 2 weeks. Test Results: Test results from this visit will be discussed in further detail at your follow-up appointment, if applicable. Discharge Plan Admission Admit Date/Time: 08/28/24 19:17 Attending Provider: Lexus Gutierrez Primary Care Provider: Areli Stockton Discharge Orders/Prescriptions Prescriptions: No Action valacyclovir [Valtrex] 1 gram tablet 1,000 mg PO BID PRN (Reason: symptom onset) Rx Instructions: take 2 at onset of symptoms PNV-[place] 28-1-300 mg capsule PO (DME) blood-glucose meter Misc See Rx Instructions .ROUTE .MEDSUPPLY Qty: 1 0RF Rx Instructions: As directed (DME) Blood Glucose Test Strip See Rx Instructions .ROUTE .MEDSUPPLY Qty: 120 6RF Rx Instructions: Check blood sugars Fasting and 2 hours after breakfast, lunch, and dinner. (DME) lancets [Droplet Lancets] 30 gauge misc See Rx Instructions .ROUTE .MEDSUPPLY Qty: 200 6RF Rx Instructions: Check blood sugars fasting and 2 hours after breakfast, lunch, and supper. Referrals / Follow Up: Areli Stockton, RONDA-C [Primary Care Provider] -
[2024-08-29 08:39] LABS: Bedside Glucose 84 mg/dL (74-106)
[2024-08-29] MEDS: Ibuprofen 600 MG Tablet PO ×2 (10:24→22:07)
[2024-08-29] MEDS: Acetaminophen 500 MG Tablet 1000 MG PO (13:07)
[2024-08-30] VITALS (8 sets, daily range): BP systolic 115–131; BP diastolic 78–86; PULSE 75–84; RESP 16; TEMP 36.3–36.6; O2SAT 96–99
[2024-08-30] MEDS: Acetaminophen 500 MG Tablet 1000 MG PO (03:24)
[2024-08-30 03:40] LABS: Bedside Glucose 81 mg/dL (74-106)
--- NOTE | 2024-08-30 07:58 | PN.OBGYN_ITS ---
Subjective Subjective Patient doing well without complaints. Tolerating PO. Ambulating and voiding without difficulty. Feeding well. Denies chest pain, shortness of breath, calf pain/swelling, fevers, chills, lightheadedness. The baby is in special care nursery due to low glucose levels. Objective Data Objective Data Vital Signs: Vital Signs Temp Pulse Resp BP Pulse Ox O2 Del Method 97.4 F L 76 16 115/78 98 Room Air 08/30/24 05:00 08/30/24 05:00 08/30/24 05:00 08/30/24 05:00 08/30/24 05:00 08/30/24 05:00 Oxygen Delivery Method Room Air Weight: 146 lb Body Mass Index (BMI) 24.3 Intake & Output: Intake and Output for Last 24 Hours 08/28/24 08/29/24 08/30/24 23:59 23:59 23:59 Intake Total 10. / . 2356.44 / 2356.44 Output Total 700 / 700 Balance 10. / 10. 1656.44 / 1656.44 Lab / Micro Data 08/28/24 20:40 Labs: Laboratory Results - last 24 hr 08/29/24 08:19: POC Glucose 84 08/30/24 03:22: POC Glucose 81 ROS Constitutional Constitutional: Denies chills, fatigue, fever(s), poor appetite or weakness Eyes Eyes: Denies blurry vision, change in vision, seeing flashes or spots in vision ENT HEENT: Denies dizziness, headache(s), loss taste/smell or sore throat Cardiovascular Cardiovascular: Denies chest pain, dizziness, dyspnea, irregular heart rhythm, palpitations or rapid heart rate Respiratory/Chest Respiratory/Chest: Denies chest tightness, cough, dyspnea or breast pain Gastrointestinal Gastrointestinal: Denies abdominal pain, constipation or vomiting Genitourinary Genitourinary: Denies dysuria or flank pain Musculoskeletal Musculoskeletal: Denies difficulty walking, joint pain, limited range of motion or numbness Neurologic Neurologic: Denies abnormal movements, abnormal speech, dizziness, numbness, seizure-like activity or syncope Psychiatric Psychiatric: Denies anxiety, behavioral changes, change in appetite, confusion, depression or suicidal thoughts Physical Exam Const alert, oriented x3 and no apparent distress General Appearance: cooperative and comfortable Resp normal respiratory effort Cardio regular rate GI normal to inspection, nondistended, normoactive bowel sounds GI Narrative: uterus is firm below umbilicus Palpation: soft Back/Spine no CVA tenderness and thoraco-lumbar ROM normal Extremity normal to inspection, no clubbing, cyanosis or edema, no calf tenderness and no pedal edema Psych mental status grossly normal, thought process normal, cooperative, affect normal, speech normal, activity/motor behavior normal, denies homicidal ideation and denies suicidal ideation Assessment & Plan (1) Status post vaginal delivery: COMMENT: Nguyen RODRIGUEZ (2) Gestational diabetes: QUALIFIERS: Gestational diabetes mellitus control: diet-controlled Trimester: third trimester Qualified Code(s): O24.410 - Gestational diabetes mellitus in , diet controlled COMMENT: diet controlled. growth US at 36. deliver by 39-40 (3) Rubella non-immune status, antepartum: COMMENT: offer MMR PP (4) Supervision of normal first : QUALIFIERS: Trimester: third trimester Qualified Code(s): Z34.03 - Encounter for supervision of normal first , third trimester COMMENT: PRR, , KAYLYNN 09/01/24, boy BF Waqas. desires jv for delivery if possible- iol august 28 pm (5) : QUALIFIERS: Weeks of gestation: 38 weeks Qualified Code(s): Z 3A.38 - 38 weeks gestation of COMMENT: GBS neg,NIPT low risk. carrier declined. afp negative, nl anatomy PLAN: Plan s/p PPD # 1 1. routine post delivery care 2. breast feeding- support given 3. rh positive 4. rubella immune 5. Continue care until baby is released from nicu. likely dc to home tomorrow.
[2024-08-30] MEDS: Ibuprofen 600 MG Tablet PO (09:28)
[2024-08-30] MEDS: MEASLES,MUMPS,RUBELLA VACC/PF 0.5 ML SC (13:16)
--- NOTE | 2024-08-31 14:48 | CASEMGMT ---
Social Work Brief Assessment - Labor and Delivery Unit Patient Address: [address] [place] [address] [address] [id number] Phone number: [phone] Date and Time of Referral:? 08/29/24 Referred By: Dr. Gutierrez Date and time of intervention:? 08/30/24, 1120 Reason for Referral:?? in SCN Informant:?? Medical record and mother of baby (MOB) History:? Sw presented to bedside and introduced self to mother of baby (MOB- Jovita) and father of baby (FOB- Waqas). Sw explained reason for sw involvement and assessed for any needs or concerns. Sw informed parents that sw present to ensure parents have obtained all necessary baby supplies, have supports in place and are familiar with signs and symptoms of baby blues and depression. Sw also assessed for any needs or concerns due to baby requiring admission to Special Care Nursery. - MOB sitting at baby's bedside nursing, and was welcoming of sw. MOB states that they are doing okay at this time and she does not have any needs or concerns. FOB observed sitting beside MOB and attentive to MOB and baby lovingly. MOB states that her labor went well and she is not feeling anxious or overwhelmed due to baby requiring short admission to SCN. MOB was knowledgeable about identified goals for baby, and is hopeful that he will be able to be discharged tomorrow (08/31/24). - MOB is 24 year old female who is 1, para 0- now 1 following labor and delivery of . MOB received routine care during with [place]. baby is first baby for parents together, who have been together for quite some time and state that they are good supports to one another. Baby boy, named Jacob Willett, was born at 39 weeks gestation via vaginal delivery. Baby weighed 8lb 1oz and had apgars of 8 and 9 at one and five minutes of life. Baby had sugar concerns due to MOB with controlled diabetes, and was transferred to [facility]. Baby has been meeting medical goals and may be eligible for discharge tomorrow. - MOB states that she has obtained all necessary baby supplies and has a lot of natural supports in place. MOB states that she is knowledgeable regarding signs and symptoms of baby blues and depression and anxiety, and feels comfortable talking to FOB and other supports should she feel as though she is struggling during this period. Assessment:? MOB and baby admitted following labor and delivery of . MOB doing well following delivery and observed caring for baby lovingly and appropriately. Both parents talkative and receptive to meet with sw. Parents appear to be in good spirits and understanding of baby's need for SCN admission and knowledgeable regarding his medical goals in order to be ready for discharge. Plan:??? No needs or concerns at this time. Sw to be available should any issues arise during baby's admission. Baby and MOB to be discharged when medically ready. No further needs requested or indicated. -Romulo Soto, [employer], [employer]
--- NOTE | 2024-09-07 09:16 | NURSING ---
Follow Up Phone Call: Patient reports she is feeling great, enjoying the sunshine. Bleeding is decreasing and reports no s+s of pp complications, but knows how to reach her provider if needed. Patient reports infant is feeding great and still . Patient was satisfied with her care.
== END 2024-08-30 13:25 | disposition home or self-care (01) | DRG 807 ==
PROVIDERS: Advanced Practice Midwife; Admitting Provider Obstetrics & Gynecology; PCP Nurse Practitioner Family; Referring Provider Obstetrics & Gynecology; Visit Provider Obstetrics & Gynecology
DX: O24.420 Gestational diabetes mellitus in childbirth, diet controlled (principal); Z37.0 Single live birth; O43.193 Other malformation of placenta, third trimester; Z3A.39 39 weeks gestation of pregnancy; O70.0 First degree perineal laceration during delivery; O69.81X0 Labor and delivery complicated by cord around neck, without compression, not applicable or unspecified
CPT/HCPCS: 59025; 59050; 82962; 85025; 86780; 86850; 86900; 86901; J2405

== ENCOUNTER → 2025-05-16 | Outpatient (CLI) | payer OTHER, SELFPAY | END | disposition home or self-care (01) | LOC: LAB 14:35 | PROVIDERS: PCP Nurse Practitioner Family; Referring Provider Advanced Practice Midwife; Visit Provider Advanced Practice Midwife | DX: R63.4 Abnormal weight loss (principal) | CPT/HCPCS: 36415; 84439; 84443 ==

== ENCOUNTER → 2025-05-21 | Outpatient (CLI) | payer OTHER, SELFPAY ==
[2025-05-21 15:33] LABS: Free T3 2.3 pg/mL (2.18-3.98)
== END | disposition home or self-care (01) ==
LOC: LAB 13:26
PROVIDERS: PCP Nurse Practitioner Family; Referring Provider Advanced Practice Midwife; Visit Provider Advanced Practice Midwife
DX: E03.9 Hypothyroidism, unspecified (principal)
CPT/HCPCS: 36415; 84439; 84443; 84481; 86376

== ENCOUNTER → 2025-05-29 | Outpatient (CLI) | payer OTHER, SELFPAY ==
--- NOTE | 2025-05-29 14:19 | US_ITS ---
PROCEDURE: THYROID 05/29/2025 REASON FOR EXAM: HYPOTHROIDISM TECHNIQUE: Procedure Code: USTHY Modality: US Procedure: THYROID COMPARISON: None. FINDINGS: Transcutaneous 2-D grayscale and color Doppler ultrasound of the thyroid gland was performed. MEASUREMENTS: Right lobe: 5.2 x 2.4 x 1.6 cm. Left lobe: 5.2 x 2.2 x 1.4 cm. Isthmus: 2 mm. RIGHT SIDE: Mildy heterogeneous echotexture. No discrete lesion. LEFT SIDE: Mildly heterogeneous echotexture. No discrete lesion. ISTHMUS: No evidence of nodule or mass. Increased vascularity without microcalcification. No enlarged lymph nodes within the visualized neck. US/Thyroid IMPRESSION: Mildly heterogenous thyroid with increased vascularity which can be seen with t hyroiditis (reactive versus autoimmune). Reading Location: [id number]
== END | disposition home or self-care (01) ==
LOC: US 14:19
PROVIDERS: PCP Nurse Practitioner Family; Referring Provider Advanced Practice Midwife; Visit Provider Advanced Practice Midwife
DX: E03.9 Hypothyroidism, unspecified (principal)
CPT/HCPCS: 76536